=== PATIENT | male | born 1950 | race Two or more races ===

== ENCOUNTER 2021-12-02 15:24 | Inpatient (IN) | payer OTHER ==
[~2021-12-02] VITALS: Ht 152.4 cm; Wt 77.1 kg
[2021-12-02] MEDS ORDERED: COZAAR25 MG (15:45)
[2021-12-02] MEDS ORDERED: ALDACTONE100 MG (15:46)
[2021-12-02] MEDS ORDERED: PANTOPRAZOLE SO40 MG (15:46)
[2021-12-02] MEDS ORDERED: FUROSEMIDE40 MG (15:46)
[2021-12-02] MEDS ORDERED: TAMS0.4C (15:47)
[2021-12-02] MEDS ORDERED: GLIPIZIDE XL5 MG (15:47)
[2021-12-02] MEDS ORDERED: TUSICOF CAPLET1 EACH (15:47)
[2021-12-02] MEDS ORDERED: GLUMETZA1000 MG (15:47)
== END 2021-12-07 12:16 | disposition left against medical advice (07) | DRG 642 ==
LOC: ER 15:24 → ICUI 12-03 00:39 → ICU-2 12-03 03:13 → ICUI 12-03 03:13 → SEC-K 12-04 12:23 → ICU-2 12-04 12:23 → SEC-K 12-04 12:23 → MEDI 12-04 21:39 → SEC-K 12-04 21:39 → MEDI 12-05 09:23
PROVIDERS: ADMIT Internal Medicine; ATTEND Internal Medicine
PROC: B24BZZZ Ultrasonography of Heart with Aorta (ICD-10-PCS; 2021-12-03)
PROC: BW21YZZ Computerized Tomography (CT Scan) of Abdomen and Pelvis using Other Contrast (ICD-10-PCS; 2021-12-04)
PROC: 4A12X4Z Monitoring of Cardiac Electrical Activity, External Approach (ICD-10-PCS; principal; 2021-12-05)
DX: E72.4 Disorders of ornithine metabolism (principal); N17.8 Other acute kidney failure; E87.2 Acidosis; E87.5 Hyperkalemia; I10 Essential (primary) hypertension; K76.89 Other specified diseases of liver; Z20.822 Contact with and (suspected) exposure to COVID-19